=== PATIENT | male | born 1990 ===

== ENCOUNTER 2017-07-28 12:42 | Emergency (ER) | payer MEDICAID ==
[2017-07-28 13:26] VITALS: O2SAT 100
--- NOTE | 2017-07-28 14:25 | C.PDOC ---
History Of Present Illness Patient is a 26 year old male with unspecified psychiatric history who presents to the ED s/p fall early this morning while intoxicated. Patient admits to binge drinking on weekends and states that around 5AM today he fell on the sidewalk on his way home. Patient reports falling on his forearms and hitting his right eyebrow on the sidewalk. Patient reports losing consciousness for about 5 seconds but he cannot verify the amount of time. Patient states he remembers falling. He states he was accompanied by a friend who was also intoxicated. Patient states when he got home his mother cleaned the abrasions on his right hand and his right eyebrow and put a topical medication on eyebrow laceration. 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 Patient admits to still being intoxicated currently. Chief Complaint (Nursing): Abnormal Skin Integrity History Per: Patient History/Exam Limitations: intoxication Onset/Duration Of Symptoms: Hrs Patient States: Fell Striking Head Severity: Mild Pain Scale Rating Of: 2 Loss Of Consciousness: Unsure Front/Back Head: 1 - laceration Past Medical History Vital Signs: Last Vital Signs Temp 98 F 07/28/17 16:52 Pulse 74 07/28/17 16:52 Resp 18 07/28/17 16:52 BP 127/84 07/28/17 16:52 Pulse Ox 100 07/29/17 09:44 - Medical History Other PMH: Unspecified psychiatric, goes to outpt program at [facility] for shot/ monthly Family History: States: Unknown Family Hx - Social History Hx Alcohol Use: Yes Hx Substance Use: No - Immunization History Hx Tetanus Toxoid Vaccination: No Hx Influenza Vaccination: No Hx Pneumococcal Vaccination: No Review Of Systems Constitutional: Negative for: Fever, Chills Eyes: Negative for: Vision Change ENT: Negative for: Ear Pain, Ear Discharge Cardiovascular: Negative for: Chest Pain, Palpitations Respiratory: Negative for: Cough, SOB with Excertion Gastrointestinal: Negative for: Nausea, Vomiting, Abdominal Pain, Diarrhea Musculoskeletal: Positive for: Hand Pain. Negative for: Neck Pain, Back Pain Neurological: Positive for: Headache. Negative for: Confusion Physical Exam - Physical Exam Appears: No Acute Distress Head: No Tenderness, Laceration (right eyebrow) Eye(s): bilateral: PERRL, EOMI Ear(s): Bilateral: Normal Nose: Normal, No Septal Hematoma Oral Mucosa: Moist Tongue: Normal Appearing, No Lesions, No Bite, No Laceration, No Bleeding Lips: No Normal Appearing, No Abrasion, No Laceration Teeth: Normal Dentition Gingiva: Normal Appearing Throat: Normal Neck: Normal, Normal ROM, No Midline Cervical Tenderness, No Paracervical Tenderness, Supple Chest: No Symmetrical Cardiovascular: Rhythm Regular Respiratory: Normal Breath Sounds Gastrointestinal/Abdominal: Bowel Sounds, Soft, No Tenderness Extremity: Other (abrasions bilateral palms, abrasions dorsum of right fourth and fifth digits) Neurological/Psych: Oriented x3, Normal Speech, Normal Cranial Nerves, Normal Sensation, Eyes Open With Command, Other (finger to nose normal, 5/5 upper and lower extremity strength) ED Course And Treatment O2 Sat by Pulse Oximetry: 100 - CT Scan/US Head Other Rad Studies (CT/US): Read By Radiologist, Radiology Report Reviewed CT/US Interpretation: PROCEDURE: CT HEAD WITHOUT CONTRAST. HISTORY: Head injury, LOC. COMPARISON: None available. TECHNIQUE: Axial computed tomography images were obtained through the head/brain without intravenous contrast. Radiation dose: Total exam DLP = 947.05 mGy-cm. This CT exam was performed using one or more of the following dose reduction techniques: Automated exposure control, adjustment of the mA and/or kV according to patient size, and/or use of iterative reconstruction technique. FINDINGS: HEMORRHAGE: No intracranial hemorrhage. BRAIN: Lucero-white matter differentiation is preserved. There is no mass, mass effect or abnormal extra-axial fluid collection. There is no territorial infarction. VENTRICLES: The ventricles are normal in size, shape and configuration. CALVARIUM: There is no calvarial fracture or extracranial soft tissue swelling. PARANASAL SINUSES: There is mild scattered mucosal thickening in the ethmoid air cells. The remaining included paranasal sinuses are predominantly clear. MASTOID AIR CELLS: Predominantly clear. OTHER FINDINGS: None. IMPRESSION: No acute intracranial abnormality. Laceration - Laceration Repair Right eyebrow Wound Length (In cm): 1.5 Description Of Wound: Linear, Clean Wound Cleansed With: Betadine, Sterile Saline Anesthesia: Lidocaine 1% Wound Examination: Irrigated With Saline Wound Closure: Suture Suture Technique And Material Used: Interrupted (5-0 ethilon) Wound Complexity: Simple Medical Decision Making Medical Decision Making: right eyebrow laceration irrigated with sterile saline Laceration repaired with 5-0 ethilon suture. Patient tolerated procedure well. Wound dressed with bacitracin and clean bandage. Disposition Counseled Patient/Family Regarding: Studies Performed, Diagnosis, Need For Followup - Disposition Referrals: [facility] at [facility] [Outside] (Patient will need sutures removed in 7 days) Disposition: HOME/ ROUTINE Disposition Time: 16:24 Condition: GOOD Instructions: Alcohol Use - When Is Drinking a Problem?, Closed Head Injury (DC ), Laceration Repair With Stitches (DC) Forms: General Discharge Instructions, [facility] (Serbian), Work Excuse - POA Present On Arrival: Falls Or Trauma - Clinical Impression Clinical Impression: Laceration, Closed head injury, Alcohol use, Fall from slip, trip, or stumble - 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 MD/DO has examined the patient and agrees with the treatment plan.
[2017-07-28] MEDS ORDERED: Tdap Vaccine 0.5 ml Vial (10-64 yrs) IM ONE ×2 (14:31→15:32)
[2017-07-28] MEDS ORDERED: Bacitracin 500 Units/gm Oint Foilpak UD TOP ONE ×2 (15:00→16:13)
[2017-07-28] MEDS ORDERED: Lidocaine 1% Inj (20ml) INFIL ONE (15:20)
--- NOTE | 2017-07-28 15:28 | CT ---
PROCEDURE: CT HEAD WITHOUT CONTRAST. HISTORY: Head injury, LOC COMPARISON: None available. TECHNIQUE: Axial computed tomography images were obtained through the head/brain without intravenous contrast. Radiation dose: Total exam DLP = 947.05 mGy-cm. This CT exam was performed using one or more of the following dose reduction techniques: Automated exposure control, adjustment of the mA and/or kV according to patient size, and/or use of iterative reconstruction technique. FINDINGS: HEMORRHAGE: No intracranial hemorrhage. BRAIN: Lucero-white matter differentiation is preserved. There is no mass, mass effect or abnormal extra-axial fluid collection. There is no territorial infarction. VENTRICLES: The ventricles are normal in size, shape and configuration. CALVARIUM: There is no calvarial fracture or extracranial soft tissue swelling. PARANASAL SINUSES: There is mild scattered mucosal thickening in the ethmoid air cells. The remaining included paranasal sinuses are predominantly clear. MASTOID AIR CELLS: Predominantly clear. OTHER FINDINGS: None. IMPRESSION: No acute intracranial abnormality.
[2017-07-28] MEDS ORDERED: Lidocaine Hydrochloride 5 ML INJ ONE (15:29)
[2017-07-28] MEDS ORDERED: Bacitracin 500 Units/gm Oint Foilpak UD ONE (15:32)
[2017-07-28 16:53] VITALS: BP 127/84; PULSE 74; RESP 18; TEMP 98
== END 2017-07-28 16:54 | disposition home or self-care (01) ==
LOC: C.ER 12:42
DX: S01.111A Laceration without foreign body of right eyelid and periocular area, initial encounter (principal); W01.0XXA Fall on same level from slipping, tripping and stumbling without subsequent striking against object, initial encounter; Y92.480 Sidewalk as the place of occurrence of the external cause; Z72.89 Other problems related to lifestyle

== ENCOUNTER 2017-08-04 16:18 | Emergency (ER) | payer MEDICAID ==
[2017-08-04 16:42] VITALS: BMI 25.8
[2017-08-04 16:43] VITALS: BP 120/76; PULSE 78; RESP 18; TEMP 98.4; O2SAT 98
--- NOTE | 2017-08-04 17:00 | C.PDOC ---
History Of Present Illness 26 yo male come in for scheduled sutures removal after laceration over forehead was repaired here in ED on 07/28/17. Pt denies fever, chills, wound redness or discharges, denies any other active complaints. Ambulate to ED for evaluation, not in any apparent distress. Time Seen by Provider: 08/04/17 16:46 Chief Complaint (Nursing): Suture/Staple Removal History Per: Patient Past Medical History Reviewed: Historical Data, Nursing Documentation, Vital Signs Vital Signs: Last Vital Signs Temp 98.4 F 08/04/17 16:42 Pulse 78 08/04/17 16:42 Resp 18 08/04/17 16:42 BP 120/76 08/04/17 16:42 Pulse Ox 98 08/04/17 17:01 - Medical History PMH: No Chronic Diseases Family History: States: Unknown Family Hx - Social History Hx Alcohol Use: Yes Hx Substance Use: No - Immunization History Hx Tetanus Toxoid Vaccination: Yes Hx Influenza Vaccination: No Hx Pneumococcal Vaccination: No Review Of Systems Except As Marked, All Systems Reviewed And Found Negative. Constitutional: Negative for: Fever, Chills Eyes: Negative for: Vision Change ENT: Negative for: Ear Discharge, Nose Discharge, Throat Pain Skin: Positive for: Lesions Neurological: Negative for: Weakness, Numbness, Altered Mental Status, Headache , Dizziness Physical Exam - Physical Exam Appears: Well, Non-toxic, No Acute Distress Skin: Normal Color, Warm Head: Normacephalic, Laceration (well healing laceration at midforehead closed with sutures#5, no edema, no erythema, no wound draining. no cellulitis.) Eye(s): bilateral: PERRL Ear(s): Bilateral: Normal Nose: No Discharge Oral Mucosa: Moist Extremity: Normal ROM Neurological/Psych: Oriented x3, Normal Speech ED Course And Treatment O2 Sat by Pulse Oximetry: 98 Pulse Ox Interpretation: Normal Progress Note: On re-eval, pt is afebrile, hemodynamicaly stable. Non-toxic. Ambulatoyr in Ed with stable gait. Head: wound cleaned, sutures removed without difficulty. No evidence of cellulitis. neuorlogicaly intact. Pt advised on wound care. ref. to f/u with PMD as need for further eval. Disposition Counseled Patient/Family Regarding: Diagnosis, Need For Followup - Disposition Referrals: [facility] at [facility] [Outside] Disposition: HOME/ ROUTINE Disposition Time: 16:56 Condition: STABLE Instructions: Stitches Removal Forms: [facility] (Bolivian) - Clinical Impression Clinical Impression: Removal of suture
== END 2017-08-04 17:05 | disposition home or self-care (01) ==
LOC: C.ER 16:18
DX: Z48.02 Encounter for removal of sutures (principal)